=== PATIENT | female | born 1950 | race African-American/Black ===

== ENCOUNTER 2017-01-13 12:11 | Emergency (ER) | payer OTHER ==
[~2017-01-13] VITALS: Ht 157.5 cm; Wt 70.0 kg
[~2017-01-13 12:11] MED LIST: ASCO-316 PO; OMEG500C PO
[2017-01-13 14:12] VITALS: BP 132/87
[2017-01-13] MEDS ORDERED: ACETAMINOPHEN 325MG TABLET PO ONE (15:00)
== END 2017-01-13 16:48 | disposition left against medical advice (07) ==
LOC: ER 15:04
DX: R68.84 Jaw pain (principal); Z98.890 Other specified postprocedural states; Z88.8 Allergy status to other drugs, medicaments and biological substances
CPT/HCPCS: 99282